=== PATIENT | male | born 2000 | race Caucasian/White ===

== ENCOUNTER 2021-07-17 16:25 | Emergency (ER) | payer MEDICARE, MEDICAID, SELFPAY ==
[2021-07-17 16:26] VITALS: BP 116/71; PULSE 92; RESP 23; TEMP 36.6; O2SAT 99; BMI 25.4
--- NOTE | 2021-07-17 16:54 | EDS_ITS ---
HPI History of Present Illness Chief Complaint: Seizure Informant: patient and parent Onset/Context/Timing Onset: Today Narrative Narrative: Patient presents with mother for evaluation after what she believes is a seizure. 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 Mom states that he had one seizure as a young child. At she believes he had another seizure and then again today. He did slip and fall today while getting into the car, got himself up and then appeared to have a seizure after sitting in the front seat. She states the symptoms were very brief and he was alert and talking shortly after. He is currently being evaluated for iron deficiency anemia. [facility] Medical History PFO (patent foramen ovale) Lashaun-Taybi syndrome Seizure Allergy/AdvReac Type Severity Reaction Status Date / Time No Known Allergies Allergy Verified 07/17/21 16:29 Social History Smoking Status: Never smoker ROS ROS ED Constitutional Constitutional ED: Denies chills or fever(s) ENT ENT ED: Denies rhinorrhea or sore throat Cardiovascular Cardiovascular: Denies chest pain or palpitations Respiratory/Chest Respiratory/Chest: Denies cough or dyspnea Gastrointestinal Gastrointestinal: Denies abdominal pain, diarrhea or vomiting Neurologic Neurologic: Denies headache(s) Allergic/Immunologic Allergic/Immunologic ED: Denies urticaria EXAM Physical Exam Const Vital Signs: 07/17/21 16:26 07/17/21 18:06 07/17/21 19:00 Temperature 97.8 F Temperature Source Temporal Pulse Rate 92 114 H 74 Respiratory Rate 23 H 18 23 H Blood Pressure 116/71 110/74 Blood Pressure Mean 86 86 Pulse Ox 99 99 97 Oxygen Delivery Method Room Air Room Air Positive well nourished and well developed General Appearance ED: well developed HEENT Reports moist mucous membranes Eyes PERRL and EOMs intact bilaterally Neck no lymphadenopathy Chest Wall inspection of chest normal and palpation of chest normal Resp normal respiratory effort and clear to auscultation bilaterally Cardio regular rate and regular rhythm GI non-tender Palpation: soft Extremity Extremity Narrative: Few abrasions noted on the palm of the right hand. Full range of motion. Neuro Neuro Narrative: Moves all 4 extremities. Sensorium / Orientation: alert MDM MDM MDM Narrative Medical decision making narrative: Patient sent for head CT. CBC and chemistry studies obtained. Lab Data Labs: Laboratory Results - last 24 hr 07/17/21 07/17/21 18:05 18:05 WBC 13.9 H RBC 6.34 H Hgb 13.6 Hct 44.6 MCV 70.3 L MCH 21.5 L MCHC 30.5 L RDW Std Deviation 42.8 RDW Coeff of Clementina 18.5 H Plt Count 361 MPV 9.0 Immature Gran % (Auto) 0.400 Neut % (Auto) 53.8 Lymph % (Auto) 28.6 [place] % (Auto) 7.3 Eos % (Auto) 9.4 H Baso % (Auto) 0.5 Absolute Neuts (auto) 7.5 Absolute Lymphs (auto) 3.96 Nucleated RBC % 0 Sodium 140 Potassium 3.8 Chloride 109 H Carbon Dioxide 27.0 Anion Gap 4 L BUN 10 Creatinine 0.75 Estim Creat Clear Calc 109.26 Est GFR (MDRD) Af Amer 167 Est GFR (MDRD) Non-Af 138 BUN/Creatinine Ratio 13.3 Glucose 89 Calcium 9.3 Radiography Diagnostic Testing: Clinical Impression(s) from Imaging Studies Brain CT 07/17/21 17:24 IMPRESSION: Normal unenhanced CT scan of the brain. Electronically Signed: Kortney Martínez MD at 17:49 EDT Reading Location ID and State: [address] [place] [address] , Service support , Treatment and Re-Evaluation Narrative: Head CT unremarkable. CBC reveals slightly elevated white count at 13.9, slightly reactive from reported seizure. Hemoglobin is now in the normal range at 13.6. Chemistry studies unremarkable. I did speak with Dr. King, on-call for the patient's PCP Dr. Weiss. As seizures are a possibility with the patient's syndrome I did recommend close follow-up and referral for neurology. Family at bedside is comfortable with this plan as well. Patient be discharged home. Discharge Plan Triage Chief Complaint: Seizure ED Provider: Mary Dangelo Dx/Rx/DC Orders Clinical Impression: Fall, Seizure Instructions: ED Seizure New Onset Unknown ... Primary Care Provider: Jhonatan Weiss Referrals: Jhonatan Weiss, [Primary Care Provider] - As soon as possible Disposition Disposition: Home, Self Care
--- NOTE | 2021-07-17 17:24 | CT_ITS ---
STUDY: CT BRAIN WITHOUT CONTRAST REASON FOR EXAM: Male, 21 years old. seizure RADIATION DOSAGE (If Supplied By Facility): CTDIvol = ( 44.99 ) mGy, DLP = ( 812.98 ) mGycm TECHNIQUE: Transaxial CT imaging of the brain was performed without administration of intravenous contrast material. Individualized dose optimization techniques were used for this CT. COMPARISON: No relevant priors. FINDINGS: Normal soft tissue structures. Normal calvarium. Normal size ventricles and extra-axial spaces for the patient''s age. Normal white matter tracts of the cerebral hemispheres. Normal basal ganglia and thalami. Normal brainstem. Normal cerebellum. There is no intracranial hemorrhage. There are no findings of an acute ischemic infarction. Normal visualized paranasal sinuses. 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 CT/Brain/Head without Contrast IMPRESSION: Normal unenhanced CT scan of the brain. Electronically Signed: Kortney Martínez MD at 17:49 EDT ,
[2021-07-17 18:06] VITALS: PULSE 114; RESP 18; O2SAT 99
[2021-07-17 18:09] LABS: Absolute Lymphocyte Count 3.96 X10^3/uL (0.83-4.51); Absolute Neutrophil Count 7.5 X10^3/uL (2.0-7.7); Basophil# 0.07 X10^3/uL; Basophil% 0.5 % (0-1); Eosinophils% 9.4 % (0-5); Hematocrit 44.6 % (40-54); Hemoglobin 13.6 g/dL (13.0-16.5); Lymphocyte # 3.96 X10^3/ul (0.83-4.51); Lymphocyte % 28.6 % (19-41); Mean Corp Hgb Conc 30.5 g/dL (32-36); Mean Corpuscular Hgb 21.5 pg (27.0-32.0); Mean Corpuscular Volume 70.3 fL (80-94); Monocyte# 1.01 X10^3/uL; Monocyte% 7.3 % (0-10); NRBC Flagged by Analyzer 0 % (0-5); Neutrophil # 7.47 X10^3/uL (2.7-7.7); Neutrophil % 53.8 % (47-70); Platelet Count 361 K/mm3 (150-450); RBC Distribution Width CV 18.5 % (11.6-14.6); RBC Distribution Width SD 42.8 fl (35.1-43.9); Red Blood Count 6.34 M/mm3 (4.6-6.2); White Blood Count 13.9 K/mm3 (4.4-11.0)
[2021-07-17 18:21] LABS: Anion Gap 4 (5-15); BUN 10 mg/dL (7-18); BUN/Creat Ratio 13.3 RATIO (10-20); Calcium,Total 9.3 mg/dL (8.5-10.1); Chloride 109 mmol/L (98-107); Creatinine, Serum 0.75 mg/dL (0.70-1.30); EST Glomerular Filtration Rate 138 mL/min (>60); Est Glom Filt Rate - Afr Amer 167 mL/min (>60); Estimated Creatinine Clearance 109.26 ml/min; Glucose 89 mg/dL (74-106); Potassium 3.8 mmol/L (3.5-5.1); Sodium Level 140 mmol/L (136-145)
[2021-07-17 19:00] VITALS: BP 110/74; PULSE 74; RESP 23; O2SAT 97
== END 2021-07-17 19:12 | disposition home or self-care (01) ==
PROVIDERS: Emergency Provider Emergency Medicine; PCP Student in an Organized Health Care Education/Training Program; Visit Provider Emergency Medicine
DX: R56.9 Unspecified convulsions (principal); Q87.2 Congenital malformation syndromes predominantly involving limbs; Q21.1 Atrial septal defect; S60.511A Abrasion of right hand, initial encounter; W01.0XXA Fall on same level from slipping, tripping and stumbling without subsequent striking against object, initial encounter; Y93.9 Activity, unspecified; Y92.9 Unspecified place or not applicable
CPT/HCPCS: 70450; 80048; 85025; 99281; A4216